=== PATIENT | male | born 2000 | race Caucasian/White ===

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

== ENCOUNTER 2021-01-01 16:13 | Emergency (ER) | payer SELFPAY ==
[~2021-01-01] VITALS: Ht 180.3 cm; Wt 87.5 kg
[~2021-01-01 16:13] MED LIST changes: +DICY20TA10 PO
--- NOTE | 2021-01-01 18:40 | ED GI ---
General Chief Complaint: Abdominal/GI Problems Stated Complaint: DIARRHEA Nursing Triage Note: pt presents to ER today by [facility] with chief complaint of diarrhea onset 3 days ago with no improvement. Pt reports that 2 days ago he started to notice blood in it. Pt was seen here yesterday and reports that he could not afford to fill the prescriptions he was written and was unable to go to work today because of it Source of Information: Patient Exam Limitations: No Limitations History of Present Illness Date Seen by Provider: Jan 01, 2021 Time Seen by Provider: 18:38 Initial Comments Ongoing diarrhea for 3 days with no improvement. Noticed some blood today. No nausea no vomiting no general malaise or systemic symptoms. He is able to drink and stay hydrated. Timing/Duration: 2-3 Days Severity/Quality: Cramping Location: Generalized Abdomen Radiation: No Radiation Associated Symptoms: Denies Symptoms Allergies and Home Medications Allergies Coded Allergies: aripiprazole (Verified Allergy, Unknown, 04/02/17) risperidone (Unverified Allergy, Unknown, 04/02/17) Home Medications Dicyclomine HCl 20 Mg Tablet, 20 MG PO Q6H Prescribed by: SUZETTE NAYAK on 12/30/20 1226 Salmeterol Xinaf/Fluticasone 1 Diskus Inhp, 0 DISKUS INH DAILY, (Reported) [Concerta] , 18 DAILY, (Reported) Patient Home Medication List Home Medication List Reviewed: Yes Review of Systems Review of Systems Constitutional: see HPI; No chills, No fever, No malaise, No weakness EENTM: No Symptoms Reported Respiratory: No Symptoms Reported Gastrointestinal: See HPI Genitourinary: No Symptoms Reported Musculoskeletal: no symptoms reported Skin: no symptoms reported Psychiatric/Neurological: No Symptoms Reported Past Gykqbzu-Pjytlt-Olplne Hx Patient Social History Tobacco Use?: No Substance use?: No Pt feels they are or have been: No Immunizations Up To Date PED Vaccines UTD: Yes Seasonal Allergies Seasonal Allergies: No Past Medical History Surgeries: No Ear Surgery Respiratory: No Cardiac: No Neurological: No Genitourinary: No Gastrointestinal: No Musculoskeletal: No Endocrine: No HEENT: No Cancer: No Psychosocial: Yes ADD/ADHD, ODD, Personality Disorder, Violent Behavior, Depression Integumentary: No Blood Disorders: No Physical Exam Vital Signs Vital Signs - First Documented 01/01/21 16:53 Pulse 103 Resp 18 B/P (MAP) 106/60 (75) Capillary Refill : Less Than 3 Seconds Height/Weight/BMI Height: 5'5.00" Weight: 150lbs. oz. 68.736681xd; 26.00 BMI Method:Estimated General Appearance: WD/WN, no apparent distress Respiratory: no respiratory distress, no accessory muscle use Cardiovascular: regular rate, rhythm, no murmur Gastrointestinal: normal bowel sounds, non tender, soft Neurologic/Psychiatric: alert, normal mood/affect, oriented x 3 Skin: normal color, warm/dry Procedures/Interventions Date of ETT Placement: Jun 01, 2017 Time of ETT Placement: 1600 Progress/Results/Core Measures Results/Orders Lab Results Laboratory Tests Test 01/01/21 18:47 Range/Units White Blood Count 5.6 4.3-11.0 10^3/uL Red Blood Count 4.73 4.30-5.52 10^6/uL Hemoglobin 14.4 13.3-17.7 g/dL Hematocrit 41 40-54 % Mean Corpuscular Volume 88 80-99 fL Mean Corpuscular Hemoglobin 30 25-34 pg Mean Corpuscular Hemoglobin Concent 35 32-36 g/dL Red Cell Distribution Width 12.0 10.0-14.5 % Platelet Count 187 130-400 10^3/uL Mean Platelet Volume 9.7 9.0-12.2 fL Immature Granulocyte % (Auto) 0 % Neutrophils (%) (Auto) 62 42-75 % Lymphocytes (%) (Auto) 18 12-44 % Monocytes (%) (Auto) 17 H 0-12 % Eosinophils (%) (Auto) 2 0-10 % Basophils (%) (Auto) 0 0-10 % Neutrophils # (Auto) 3.4 1.8-7.8 X 10^3 Lymphocytes # (Auto) 1.0 1.0-4.0 X 10^3 Monocytes # (Auto) 1.0 0.0-1.0 X 10^3 Eosinophils # (Auto) 0.1 0.0-0.3 10^3/uL Basophils # (Auto) 0.0 0.0-0.1 10^3/uL Immature Granulocyte # (Auto) 0.0 0.0-0.1 10^3/uL Sodium Level 134 L 135-145 MMOL/L Potassium Level 4.2 3.6-5.0 MMOL/L Chloride Level 100 98-107 MMOL/L Carbon Dioxide Level 23 21-32 MMOL/L Anion Gap 11 5-14 MMOL/L Blood Urea Nitrogen 10 7-18 MG/DL Creatinine 0.82 0.60-1.30 MG/DL Estimat Glomerular Filtration Rate > 60 BUN/Creatinine Ratio 12 Glucose Level 97 70-105 MG/DL Calcium Level 9.0 8.5-10.1 MG/DL Corrected Calcium 9.1 8.5-10.1 MG/DL Total Bilirubin 0.4 0.1-1.0 MG/DL Aspartate Amino Transf (AST/SGOT) 18 5-34 U/L Alanine Aminotransferase (ALT/SGPT) 13 0-55 U/L Alkaline Phosphatase 74 40-136 U/L C-Reactive Protein High Sensitivity 11.77 H 0.00-0.50 MG/DL Total Protein 6.7 6.4-8.2 GM/DL Albumin 3.9 3.2-4.5 GM/DL My Orders Orders - ACACIA HARLEY APRN Hyoscyamine Sl Tablet (Levsin Sl Tablet) (01/01/21 18:45) Rx-Loperamide (Rx-Imodium) (01/01/21 18:45) Cbc With Automated Diff (01/01/21 18:42) Hs C Reactive Protein (01/01/21 18:42) Comprehensive Metabolic Panel (01/01/21 18:42) Rx-Loperamide (Rx-Imodium) (01/01/21 18:51) Stool Culture (01/01/21 19:21) Medications Given in ED Current Medications Medications Dose Ordered Sig/Elli Route Start Time Stop Time Status Last Admin Dose Admin Hyoscyamine Sulfate 0.25 mg ONCE ONCE PO 01/01/21 18:45 01/01/21 18:46 DC 01/01/21 18:48 0.25 MG Loperamide HCl 4 mg ONCE ONCE PO 01/01/21 18:45 01/01/21 19:22 DC 01/01/21 18:51 4 MG Vital Signs/I&O 01/01/21 16:53 Pulse 103 Resp 18 B/P (MAP) 106/60 (75) Blood Pressure Mean: 75 Departure Communication (Admissions) 1939-patient is unable to provide us with a stool sample here. I will give him an outpatient order for this. Given the elevated CRP this is likely infectious or inflammatory in nature. He has never had anything like this before. Given the 3 days sudden onset of bloody crampy diarrhea this is most likely infectious. Due to concern for possibly bring about a hemolytic uremic syndrome depending on the pathogen I will not give him empiric antibiotics and will not have him use any antidiarrheals. Impression Primary Impression: Diarrhea Disposition: HOME, SELF-CARE Condition: Stable Departure-Patient Inst. Decision time for Depature: 18:39 Referrals: NO,LOCAL PHYSICIAN (PCP/Family) Primary Care Physician Patient Instructions: NO INSTRUCTIONS GIVEN Add. Discharge Instructions: 1. Stay hydrated by drinking plenty of fluids. Return to ER for severe pain general weakness nausea or other concerns. Expect this to improve in about a week. All discharge instructions reviewed with patient and/or family. Voiced understanding. ACACIA HARLEY PRE K TEACHER Jan 01, 2021 18:40
[2021-01-01] MEDS ORDERED: HYOSCYAMINE 0.125 MG (LEVSIN) TAB PO ONE (18:45)
[2021-01-01] MEDS ORDERED: RX-LOPERAMIDE 2 MG (IMODIUM) CAP PPK#4 PO ONE ×2 (18:45→18:51)
[2021-01-01 19:01] LABS: BASOPHILS % (AUTO) 0 % (0-10); EOSINOPHILS # (AUTO) 0.1 10^3/uL (0.0-0.3); EOSINOPHILS % (AUTO) 2 % (0-10); HEMATOCRIT 41 % (40-54); HEMOGLOBIN 14.4 g/dL (13.3-17.7); LYMPHOCYTES % (AUTO) 18 % (12-44); MEAN CORPUSCULAR HEMOGLOBIN 30 pg (25-34); MEAN CORPUSCULAR HGB CONC 35 g/dL (32-36); MEAN CORPUSCULAR VOLUME 88 fL (80-99); MEAN PLATELET VOLUME 9.7 fL (9.0-12.2); MONOCYTES % (AUTO) 17 % (0-12); NEUTROPHILS # (AUTO) 3.4 X 10^3 (1.8-7.8); NEUTROPHILS % (AUTO) 62 % (42-75); PLATELET COUNT 187 10^3/uL (130-400); WHITE BLOOD COUNT 5.6 10^3/uL (4.3-11.0)
[2021-01-01 19:08] LABS: ALBUMIN 3.9 GM/DL (3.2-4.5); CHLORIDE 100 MMOL/L (98-107); POTASSIUM 4.2 MMOL/L (3.6-5.0); SODIUM 134 MMOL/L (135-145)
[2021-01-01 19:10] LABS: GLUCOSE 97 MG/DL (70-105)
[2021-01-01 19:11] LABS: TOTAL PROTEIN 6.7 GM/DL (6.4-8.2)
[2021-01-01 19:12] LABS: BILIRUBIN,TOTAL 0.4 MG/DL (0.1-1.0); CARBON DIOXIDE 23 MMOL/L (21-32)
[2021-01-01 19:14] LABS: ALKALINE PHOSPHATASE 74 U/L (40-136); CREATININE SERUM 0.82 MG/DL (0.60-1.30); GFR ESTIMATED > 60
[2021-01-01 19:15] LABS: BUN/CREATININE RATIO 12
[2021-01-01 19:17] LABS: ALANINE AMINOTRANSFERASE 13 U/L (0-55)
[2021-01-01 19:39] VITALS: BP 108/62
== END 2021-01-01 19:39 | disposition home or self-care (01) ==
LOC: EDUNIT# 16:13 → ER 16:14
DX: R19.7 Diarrhea, unspecified (principal)
CPT/HCPCS: 36415; 80053; 85025; 86141; 99283

== ENCOUNTER 2021-10-20 18:22 | Emergency (ER) | payer SELFPAY ==
[~2021-10-20 18:22] MED LIST changes: +DICY20TA PO; -DICY20TA10 PO
--- NOTE | 2021-10-20 18:44 | ED GI ---
General Chief Complaint: General Problems/Pain Stated Complaint: STOMACH PAIN Nursing Triage Note: PT AMB TO RM 3 WITH C/O ABD PAIN, CHEST PAIN AND A COUGH. PT STATES IT ALL STARTED YESTERDAY Source of Information: Patient Exam Limitations: No Limitations (ACACIA HARLEY APRN) History of Present Illness Date Seen by Provider: Oct 20, 2021 Time Seen by Provider: 18:42 Initial Comments To ER with lower central chest and left upper abdominal pain. He also reports that his nose is intermittently congested and intermittently runny. He also states "my stomach be makin' digestive noises". He denies diarrhea or constipation. No fevers or chills. Timing/Duration: 1-2 Days Severity/Quality: Moderate Location: Epigastric Radiation: No Radiation Activities at Onset: None Associated Symptoms: Denies Symptoms (ACACIA HARLEY APRN) Allergies and Home Medications Allergies Coded Allergies: aripiprazole (Verified Allergy, Unknown, 04/02/17) risperidone (Unverified Allergy, Unknown, 04/02/17) Patient Home Medication List Home Medication List Reviewed: Yes (ACACIA HARLEY APRN) Dicyclomine HCl (Dicyclomine HCl) 20 Mg Tablet, 20 MG PO Q6H Prescribed by: SUZETTE NAYAK on 12/30/20 1226 Salmeterol Xinaf/Fluticasone (Advair 100 Mcg/50 Mcg) 1 Diskus Inhp, 0 DISKUS INH DAILY, (Reported) Entered as Reported by: CEE LAZO on 01/03/10 1131 [Concerta] , 18 DAILY, (Reported) Entered as Reported by: CEE LAZO on 01/03/10 1131 Review of Systems Review of Systems Constitutional: see HPI EENTM: No Symptoms Reported, Nose Congestion Respiratory: See HPI, Cough (States that sometimes he has a cough and sometimes he does not) Cardiovascular: See HPI, Chest Pain Gastrointestinal: See HPI, Abdominal Pain; Denies Constipated, Denies Diarrhea, Denies Nausea Genitourinary: No Symptoms Reported Musculoskeletal: no symptoms reported Skin: no symptoms reported Psychiatric/Neurological: No Symptoms Reported Endocrine: No Symptoms Reported Hematologic/Lymphatic: No Symptoms Reported (ACACIA HARLEY APRN) Past Tklarrz-Ykszxz-Yorupo Hx Patient Social History Tobacco Use?: Yes Tobacco type used: Cigarettes Smoking Status: Current Everyday Smoker Use of E-Cig and/or Vaping dev: Yes E-Cig or Vaping type used: Nicotine Use of E-Cig and/or Vaping Mikal: Current Everyday User Substance use?: Yes Substance type: Marijuana Substance frequency: Several times a month Alcohol Use?: Yes Alcohol type: Beer, Hard Liquor Alcohol Frequency: Couple times a week Pt feels they are or have been: No (ACACIA HARLEY APRN) Immunizations Up To Date PED Vaccines UTD: Yes (ACACIA HARLEY APRN) Seasonal Allergies Seasonal Allergies: No (ACACIA HARLEY APRN) Past Medical History Surgeries: No Ear Surgery Respiratory: No Cardiac: No Neurological: No Genitourinary: No Gastrointestinal: No Musculoskeletal: No Endocrine: No HEENT: No Cancer: No Psychosocial: Yes ADD/ADHD, ODD, Personality Disorder, Violent Behavior, Depression Integumentary: No Blood Disorders: No (ACACIA HARLEY APRN) Physical Exam Vital Signs Vital Signs - First Documented 10/20/21 18:30 Temp 36.1 Pulse 83 Resp 18 B/P (MAP) 124/70 (88) (WAQAR SAUCEDO DO) Vital Signs Capillary Refill : (ACACIA HARLEY APRN) Height/Weight/BMI Height: 5'5.00" Weight: 150lbs. oz. 68.610336od; 26.00 BMI Method:Estimated General Appearance: WD/WN, no apparent distress, other HEENT: PERRL/EOMI, normal ENT inspection, TMs normal Neck: non-tender, full range of motion; No lymphadenopathy (R), No lymphadenopathy (L) Respiratory: normal breath sounds, no respiratory distress, no accessory muscle use Cardiovascular: regular rate, rhythm, no murmur Gastrointestinal: normal bowel sounds, non tender, soft Extremities: normal range of motion, non-tender Neurologic/Psychiatric: alert, normal mood/affect, oriented x 3 Skin: normal color, warm/dry (ACACIA HARLEY APRN) Procedures/Interventions Date of ETT Placement: Jun 01, 2017 Time of ETT Placement: 1600 (ACACIA HARLEY APRN) Progress/Results/Core Measures Results/Orders Lab Results Laboratory Tests Test 10/20/21 19:05 10/20/21 20:22 Range/Units White Blood Count 7.1 4.3-11.0 10^3/uL Red Blood Count 4.64 4.30-5.52 10^6/uL Hemoglobin 14.4 13.3-17.7 g/dL Hematocrit 42 40-54 % Mean Corpuscular Volume 91 80-99 fL Mean Corpuscular Hemoglobin 31 25-34 pg Mean Corpuscular Hemoglobin Concent 34 32-36 g/dL Red Cell Distribution Width 12.1 10.0-14.5 % Platelet Count 253 130-400 10^3/uL Mean Platelet Volume 9.3 9.0-12.2 fL Immature Granulocyte % (Auto) 0 % Neutrophils (%) (Auto) 60 42-75 % Lymphocytes (%) (Auto) 26 12-44 % Monocytes (%) (Auto) 11 0-12 % Eosinophils (%) (Auto) 3 0-10 % Basophils (%) (Auto) 0 0-10 % Neutrophils # (Auto) 4.3 1.8-7.8 10^3/uL Lymphocytes # (Auto) 1.9 1.0-4.0 10^3/uL Monocytes # (Auto) 0.8 0.0-1.0 10^3/uL Eosinophils # (Auto) 0.2 0.0-0.3 10^3/uL Basophils # (Auto) 0.0 0.0-0.1 10^3/uL Immature Granulocyte # (Auto) 0.0 0.0-0.1 10^3/uL Sodium Level 141 135-145 MMOL/L Potassium Level 3.7 3.6-5.0 MMOL/L Chloride Level 104 98-107 MMOL/L Carbon Dioxide Level 24 21-32 MMOL/L Anion Gap 13 5-14 MMOL/L Blood Urea Nitrogen 15 7-18 MG/DL Creatinine 0.90 0.60-1.30 MG/DL Estimat Glomerular Filtration Rate 125 BUN/Creatinine Ratio 17 Glucose Level 78 70-105 MG/DL Calcium Level 9.2 8.5-10.1 MG/DL Corrected Calcium 8.8 8.5-10.1 MG/DL Total Bilirubin 0.5 0.1-1.0 MG/DL Aspartate Amino Transf (AST/SGOT) 18 5-34 U/L Alanine Aminotransferase (ALT/SGPT) 14 0-55 U/L Alkaline Phosphatase 70 40-136 U/L Total Protein 6.7 6.4-8.2 GM/DL Albumin 4.5 3.2-4.5 GM/DL Lipase 18 8-78 U/L Serum Alcohol < 10 <10 MG/DL Urine Color YELLOW Urine Clarity CLEAR Urine pH 7.0 5-9 Urine Specific [place] 1.025 H 1.016-1.022 Urine Protein NEGATIVE NEGATIVE Urine Glucose (UA) NEGATIVE NEGATIVE Urine Ketones NEGATIVE NEGATIVE Urine Nitrite NEGATIVE NEGATIVE Urine Bilirubin NEGATIVE NEGATIVE Urine Urobilinogen 0.2 < = 1.0 MG/DL Urine Leukocyte Esterase NEGATIVE NEGATIVE Urine RBC (Auto) NEGATIVE NEGATIVE Urine RBC NONE /HPF Urine WBC 0-2 /HPF Urine Squamous Epithelial Cells 0-2 /HPF Urine Crystals PRESENT H /LPF Urine Amorphous Sediment FEW KEISHA PHOSPHATE H /LPF Urine Bacteria NEGATIVE /HPF Urine Casts NONE /LPF Urine Mucus SMALL H /LPF Urine Culture Indicated NO Urine Opiates Screen NEGATIVE NEGATIVE Urine Oxycodone Screen NEGATIVE NEGATIVE Urine Methadone Screen NEGATIVE NEGATIVE Urine Propoxyphene Screen NEGATIVE NEGATIVE Urine Barbiturates Screen NEGATIVE NEGATIVE Ur Tricyclic Antidepressants Screen NEGATIVE NEGATIVE Urine Phencyclidine Screen NEGATIVE NEGATIVE Urine Amphetamines Screen NEGATIVE NEGATIVE Urine Methamphetamines Screen NEGATIVE NEGATIVE Urine Benzodiazepines Screen NEGATIVE NEGATIVE Urine Cocaine Screen NEGATIVE NEGATIVE Urine Cannabinoids Screen POSITIVE H NEGATIVE (LEWISWAQAR ) Vital Signs/I&O 10/20/21 10/20/21 18:30 20:40 Temp 36.1 36.1 Pulse 83 80 Resp 18 16 B/P (MAP) 124/70 (88) 122/70 (WAQAR SAUCEDO ) Blood Pressure Mean: 88 Departure Communication (Admissions) 1999-pain is gone at this time after GI cocktail. He does drink alcohol in the form of vodka fairly regularly he states. Suspect gastritis given resolution of pain with GI cocktail. We will discharged home. NAME: ANDREW COLEY REC#: [id number] PT STATUS: REG ER : 2001 PHYSICIAN: ACACIA HARLEY APRN ADMIT DATE: 10/20/21/ER Draft Date of Exam:10/20/21 ACUTE ABD SERIES INDICATION: Chest and abdominal pain. FINDINGS: The heart size is normal. Lungs are clear. There is no pleural effusion or pneumothorax. The bowel gas pattern is nonspecific. There is no free air. There are no abnormal abdominal calcifications. IMPRESSION: 1. No acute cardiopulmonary abnormality. 2. Nonspecific bowel gas pattern. Dictated on workstation # [id number] Dict: 10/20/211903 Trans: 10/20/211907 [facility] [id number] Interpreted by: LINSEY STEPHENSON MD Electronically signed by: (ACACIA HARLEY APRN) Impression Primary Impression: Gastritis Disposition: 01 HOME, SELF-CARE Condition: Stable Departure-Patient Inst. Decision time for Depature: 19:11 (ACACIA HARLEY APRN) Referrals: NO,LOCAL PHYSICIAN (PCP/Family) Primary Care Physician Patient Instructions: NO INSTRUCTIONS GIVEN, Gastritis Add. Discharge Instructions: 1. Some Pepcid [id number] 1 tablet twice a day for couple of days would be helpful. Also reduce your alcohol intake. Follow-up with your doctor at your earliest convenience. All discharge instructions reviewed with patient and/or family. Voiced understanding. ATTENDING PHYSICIAN NOTED: I WAS PHYSICALLY PRESENT ER PHYSICIAN, BUT I WAS NOT INVOLVED IN ANY DECISION MAKING OR ANY CARE OF THIS PATIENT. (WAQAR SAUCEDO DO) ACACIA HARLEY APRN Oct 20, 2021 18:44 WAQAR SAUCEDO DO Oct 23, 2021 04:48
[2021-10-20] MEDS ORDERED: LIDOCAINE 2% VISCOUS 15 ML UDC PO ONE (18:45)
[2021-10-20] MEDS ORDERED: ANTACID SUSP 30 ML UDC (MYLANTA) PO ONE (18:45)
--- NOTE | 2021-10-20 19:09 | Diagnostic Imaging Report ---
INDICATION: Chest and abdominal pain. FINDINGS: The heart size is normal. Lungs are clear. There is no pleural effusion or pneumothorax. The bowel gas pattern is nonspecific. There is no free air. There are no abnormal abdominal calcifications. IMPRESSION: 1. No acute cardiopulmonary abnormality. 2. Nonspecific bowel gas pattern. Dictated by: Dictated on workstation # [id number]
[2021-10-20 19:17] LABS: BASOPHILS % (AUTO) 0 % (0-10); EOSINOPHILS # (AUTO) 0.2 10^3/uL (0.0-0.3); EOSINOPHILS % (AUTO) 3 % (0-10); HEMATOCRIT 42 % (40-54); HEMOGLOBIN 14.4 g/dL (13.3-17.7); LYMPHOCYTES # (AUTO) 1.9 10^3/uL (1.0-4.0); LYMPHOCYTES % (AUTO) 26 % (12-44); MEAN CORPUSCULAR HEMOGLOBIN 31 pg (25-34); MEAN CORPUSCULAR HGB CONC 34 g/dL (32-36); MEAN CORPUSCULAR VOLUME 91 fL (80-99); MEAN PLATELET VOLUME 9.3 fL (9.0-12.2); MONOCYTES # (AUTO) 0.8 10^3/uL (0.0-1.0); MONOCYTES % (AUTO) 11 % (0-12); NEUTROPHILS # (AUTO) 4.3 10^3/uL (1.8-7.8); NEUTROPHILS % (AUTO) 60 % (42-75); PLATELET COUNT 253 10^3/uL (130-400); WHITE BLOOD COUNT 7.1 10^3/uL (4.3-11.0)
[2021-10-20 19:45] LABS: ALBUMIN 4.5 GM/DL (3.2-4.5); CHLORIDE 104 MMOL/L (98-107); POTASSIUM 3.7 MMOL/L (3.6-5.0); SODIUM 141 MMOL/L (135-145)
[2021-10-20 19:46] LABS: CALCIUM 9.2 MG/DL (8.5-10.1)
[2021-10-20 19:47] LABS: GLUCOSE 78 MG/DL (70-105); TOTAL PROTEIN 6.7 GM/DL (6.4-8.2)
[2021-10-20 19:48] LABS: CARBON DIOXIDE 24 MMOL/L (21-32)
[2021-10-20 19:49] LABS: BILIRUBIN,TOTAL 0.5 MG/DL (0.1-1.0)
[2021-10-20 19:51] LABS: ALKALINE PHOSPHATASE 70 U/L (40-136); GFR ESTIMATED 125
[2021-10-20 19:52] LABS: BUN/CREATININE RATIO 17
[2021-10-20 19:54] LABS: ALANINE AMINOTRANSFERASE 14 U/L (0-55); LIPASE 18 U/L (8-78)
[2021-10-20 20:28] LABS: BILIRUBIN,URINE NEGATIVE (NEGATIVE); CLARITY,URINE CLEAR; COLOR,URINE YELLOW; GLUCOSE, URINE (UA) NEGATIVE (NEGATIVE); KETONES,URINE NEGATIVE (NEGATIVE); LEUKOCYTE ESTERASE ,URINE NEGATIVE (NEGATIVE); NITRITE,URINE NEGATIVE (NEGATIVE); PROTEIN,URINE NEGATIVE (NEGATIVE)
[2021-10-20 20:37] LABS: BACTERIA,URINE NEGATIVE /HPF; SQUAMOUS EPITHELIAL CELL,UR 0-2 /HPF; WBC,URINE 0-2 /HPF
[2021-10-20 20:39] LABS: AMORPHOUS SEDIMENT,UR FEW AMOR PHOSPHATE /LPF
[2021-10-20 20:40] VITALS: BP 122/70
[2021-10-20 20:41] LABS: AMPHETAMINE SCREEN, URINE NEGATIVE (NEGATIVE); BARBITURATE SCREEN URINE NEGATIVE (NEGATIVE); BENZODIAZEPINES SCREEN URINE NEGATIVE (NEGATIVE); CANNABINOID SCREEN, URINE POSITIVE (NEGATIVE); COCAINE SCREEN URINE NEGATIVE (NEGATIVE); METHADONE STAT NEGATIVE (NEGATIVE); METHAMPHETAMINE SCREEN URINE S NEGATIVE (NEGATIVE); OPIATE SCREEN URINE NEGATIVE (NEGATIVE); OXYCODONE STAT NEGATIVE (NEGATIVE); PROPOXYPHENE STAT NEGATIVE (NEGATIVE); TRICYCLIC ANTIDEPRESSANTS SCRE NEGATIVE (NEGATIVE)
== END 2021-10-20 20:42 | disposition home or self-care (01) ==
LOC: EDUNIT# 18:22 → ER 18:24
DX: K29.70 Gastritis, unspecified, without bleeding (principal); F17.210 Nicotine dependence, cigarettes, uncomplicated
CPT/HCPCS: 74022; 80053; 80306; 81000; 83690; 85025; G0480; 36415; 80320